=== PATIENT | male | born 1945 | race American Indian/Alaskan Native ===

== ENCOUNTER 2018-09-11 03:23 | Inpatient (IN) | payer MEDICARE ==
[2018-09-11] MEDS ORDERED: ASPIRIN PO ONE (03:35)
--- NOTE | 2018-09-11 03:47 | Emergency Department Report ---
ED General Adult HPI - General Chief complaint: Chest Pain Stated complaint: CHEST PAIN/DIZZINESS Time Seen by Provider: 09/11/18 03:45 Source: patient, RN notes reviewed, old records reviewed Mode of arrival: Ambulatory Limitations: No Limitations - History of Present Illness Initial comments: Primary care Dr.: [facility] Cardiology: Dr. Gamboa Past medical history: Ischemic cardiomyopathy, ejection fraction 35-40%, proximal LAD stent on aspirin therapy This is a 72-year-old gentleman who is not known to this provider previously, who presents to the ER with a complaint of central chest pain, that started last night, is now resolved, and "feels like my last heart attack." The patient denies vomiting, diaphoresis, shortness of breath. He denies leg pain, leg swelling, DVT, pulmonary embolus risk factors. He reports that briefly, when getting up, he felt dizzy, this has since resolved. He denies headache, neck pain, visual disturbance, extremity weakness, extremity numbness, flulike symptoms, cough, urinary symptoms. -: Gradual Location: chest Radiation: non-radiation Quality: aching Consistency: intermittent Improves with: none Worsens with: none Associated Symptoms: chest pain, loss of appetite, malaise, weakness. denies: confusion, cough, diaphoresis, fever/chills, headaches, nausea/vomiting, rash, seizure, shortness of breath, syncope - Related Data Home Medications Medication Instructions Recorded Confirmed Last Taken Carvedilol [Coreg] 12.5 mg PO BID 08/01/16 09/11/18 08/01/16 06:30 Cholecalciferol (Vitamin D3) 1,000 unit PO QDAY 08/01/16 09/11/18 08/01/16 06:30 [Vitamin D3] Cyanocobalamin (Vitamin B-12) 1,000 mcg PO QDAY 08/01/16 09/11/18 08/01/16 06:30 Lisinopril [Zestril TAB] 0.5 tab PO QDAY 08/01/16 09/11/18 08/01/16 06:30 Vitamin A 8,000 unit PO QDAY 08/01/16 09/11/18 08/01/16 06:30 Aspirin [Aspirin EC] 325 mg PO DAILY 09/11/18 09/11/18 Unknown Multivitamin with Iron 1 tab PO DAILY 09/11/18 09/11/18 Unknown [Multivitamins with Iron] Allergies Allergy/AdvReac Type Severity Reaction Status Date / Time No Known Allergies Allergy Verified 08/01/16 08:10 ED Review of Systems ROS: Stated complaint: CHEST PAIN/DIZZINESS Other details as noted in HPI Constitutional: malaise. denies: fever Eyes: denies: eye discharge ENT: denies: epistaxis, congestion Respiratory: denies: wheezing Cardiovascular: chest pain Gastrointestinal: denies: abdominal pain, nausea, vomiting Genitourinary: denies: dysuria Musculoskeletal: denies: arthralgia, myalgia Skin: denies: lesions Neurological: weakness Psychiatric: denies: anxiety ED Past Medical Hx - Past Medical History Previous Medical History?: Yes Hx Hypertension: Yes (2007) Hx Heart Attack/AMI: Yes (2007) Hx Arthritis: Yes (knees) - Surgical History Past Surgical History?: Yes Hx Coronary Stent: Yes (x2) Additional Surgical History: tonsil - Social History Smoking Status: Never Smoker Substance Use Type: Alcohol - Medications Home Medications: Home Medications Medication Instructions Recorded Confirmed Last Taken Type Carvedilol [Coreg] 12.5 mg PO BID 08/01/16 09/11/18 08/01/16 06:30 History Cholecalciferol (Vitamin D3) 1,000 unit PO QDAY 08/01/16 09/11/18 08/01/16 06:30 History [Vitamin D3] Cyanocobalamin (Vitamin B-12) 1,000 mcg PO QDAY 08/01/16 09/11/18 08/01/16 06:30 History Lisinopril [Zestril TAB] 0.5 tab PO QDAY 08/01/16 09/11/18 08/01/16 06:30 His tory Vitamin A 8,000 unit PO QDAY 08/01/16 09/11/18 08/01/16 06:30 History Aspirin [Aspirin EC] 325 mg PO DAILY 09/11/18 09/11/18 Unknown History Multivitamin with Iron 1 tab PO DAILY 09/11/18 09/11/18 Unknown History [Multivitamins with Iron] ED Physical Exam - General Limitations: No Limitations General appearance: alert, in no apparent distress - Head Head exam: Present: atraumatic, normocephalic - Eye Eye exam: Present: normal appearance, EOMI. Absent: nystagmus - ENT ENT exam: Present: normal exam, normal orophraynx, mucous membranes moist, normal external ear exam - Neck Neck exam: Present: normal inspection, full ROM. Absent: tenderness, meningismus - Respiratory Respiratory exam: Present: normal lung sounds bilaterally. Absent: respiratory distress - Cardiovascular Cardiovascular Exam: Present: regular rate, normal rhythm, normal heart sounds. Absent: bradycardia, tachycardia, irregular rhythm, systolic murmur, diastolic murmur, rubs, gallop - GI/Abdominal GI/Abdominal exam: Present: soft. Absent: distended, tenderness, guarding, rebound, rigid, pulsatile mass - Rectal Rectal exam: Present: deferred - Extremities Exam Extremities exam: Present: normal inspection, full ROM, other (there is no palpable cord. There is a negative Homans sign.). Absent: pedal edema, joint swelling, calf tenderness - Back Exam Back exam: Present: normal inspection, full ROM. Absent: tenderness, CVA tenderness (R), paraspinal tenderness, vertebral tenderness - Neurological Exam Neurological exam: Present: alert, oriented X3, other (Extraocular movements intact. Tongue midline. No facial droop. Facial sensation intact to light touch in the V1, V2, V3 distribution bilaterally. 5 and 5 strength in 4 extremities.. Sensation is intact to light touch in 4 extremities.). Absent: motor sensory deficit - Psychiatric Psychiatric exam: Present: normal affect, normal mood - Skin Skin exam: Present: warm, dry, intact, normal color. Absent: rash ED Course Vital Signs 09/11/18 09/11/18 09/11/18 03:30 04:02 05:01 Temperature 99.1 F 99.2 F Pulse Rate 89 77 Respiratory 16 15 15 Rate Blood Pressure 126/69 116/63 Blood Pressure 123/66 [Left] O2 Sat by Pulse 98 100 Oximetry ED Medical Decision Making - Lab Data Result diagrams: 09/11/18 03:52 09/11/18 03:52 Vital Signs 09/11/18 09/11/18 09/11/18 03:30 04:02 05:01 Temperature 99.1 F 99.2 F Pulse Rate 89 77 Respiratory 16 15 15 Rate Blood Pressure 126/69 116/63 Blood Pressure 123/66 [Left] O2 Sat by Pulse 98 100 Oximetry Lab Results 09/11/18 09/11/18 09/11/18 Range/Units 03:52 03:52 03:52 WBC 3.5 L (4.5-11.0) K/mm3 RBC 4.47 (3.65-5.03) M/mm3 Hgb 12.3 (11.8-15.2) gm/dl Hct 37.3 (35.5-45.6) % MCV 84 (84-94) fl MCH 28 (28-32) pg MCHC 33 (32-34) % RDW 15.5 H (13.2-15.2) % Plt Count 111 L (140-440) K/mm3 Lymph % (Auto) 24.3 (13.4-35.0) % [place] % (Auto) 9.6 H (0.0-7.3) % Eos % (Auto) 1.5 (0.0-4.3) % Baso % (Auto) 1.1 (0.0-1.8) % Lymph # 0.9 L (1.2-5.4) K/mm3 [place] # 0.3 (0.0-0.8) K/mm3 Eos # 0.1 (0.0-0.4) K/mm3 Baso # 0.0 (0.0-0.1) K/mm3 Seg Neutrophils % 63.5 (40.0-70.0) % Seg Neutrophils # 2.3 (1.8-7.7) K/mm3 PT 13.3 (12.2-14.9) Sec. INR 0.97 (0.87-1.13) APTT 27.5 (24.2-36.6) Sec. Sodium 132 L (137-145) mmol/L Potassium 4.9 (3.6-5.0) mmol/L Chloride 96.3 L (98-107) mmol/L Carbon Dioxide 19 L (22-30) mmol/L Anion Gap 22 mmol/L BUN 14 (9-20) mg/dL Creatinine 1.5 (0.8-1.5) mg/dL Estimated GFR 56 ml/min BUN/Creatinine Ratio 9 % Glucose 138 H (75-100) mg/dL Calcium 8.7 (8.4-10.2) mg/dL Magnesium (1.7-2.3) mg/dL Total Creatine Kinase (55-170) units/L Troponin T < 0.010 (0.00-0.029) ng/mL TSH (0.270-4.200) mlU/mL 09/11/18 09/11/18 Range/Units 03:52 03:52 WBC (4.5-11.0) K/mm3 RBC (3.65-5.03) M/mm3 Hgb (11.8-15.2) gm/dl Hct (35.5-45.6) % MCV (84-94) fl MCH (28-32) pg MCHC (32-34) % RDW (13.2-15.2) % Plt Count (140-440) K/mm3 Lymph % (Auto) (13.4-35.0) % [place] % (Auto) (0.0-7.3) % Eos % (Auto) (0.0-4.3) % Baso % (Auto) (0.0-1.8) % Lymph # (1.2-5.4) K/mm3 [place] # (0.0-0.8) K/mm3 Eos # (0.0-0.4) K/mm3 Baso # (0.0-0.1) K/mm3 Seg Neutrophils % (40.0-70.0) % Seg Neutrophils # (1.8-7.7) K/mm3 PT (12.2-14.9) Sec. INR (0.87-1.13) APTT (24.2-36.6) Sec. Sodium (137-145) mmol/L Potassium (3.6-5.0) mmol/L Chloride (98-107) mmol/L Carbon Dioxide (22-30) mmol/L Anion Gap mmol/L BUN (9-20) mg/dL Creatinine (0.8-1.5) mg/dL Estimated GFR ml/min BUN/Creatinine Ratio % Glucose (75-100) mg/dL Calcium (8.4-10.2) mg/dL Magnesium 2.00 (1.7-2.3) mg/dL Total Creatine Kinase 309 H (55-170) units/L Troponin T (0.00-0.029) ng/mL TSH 1.650 (0.270-4.200) mlU/mL - EKG Data 09/11/18 05:19 Sinus, 83 bpm, normal axis, QTC prolonged, poor R WaVE Progression, left ventricular hypertrophy, abnormal EKG, not consistent with ST elevation myocardial infarction, compared to prior EKG from 2016, specific changes have taken place - Radiology Data Radiology results: report reviewed, image reviewed Noncontrast CT scan of the brain is negative for acute disease. X-ray of the chest is negative for acute disease. - Medical Decision Making Differential diagnosis, including not limited to: Acute coronary syndrome, GERD, gastritis, hiatal hernia, pneumonia, pneumothorax, TIA Assessment and plan: 72-year-old gentleman, no reported pulmonary embolus or DVT risk factors, not tachycardic, not hypoxic, with resolved transient dizziness that began after he got from standing, lasted for a few seconds, currently has a Aquil[place] Coma Scale of 15, with an NIH score of 0, with chest pain, abnormal EKG, negative troponin. He is treated for his pain, screening laboratory studies unremarkable, he will be admitted to the medical service for cardiac risk stratification, Dr. Barnes, the hospital physician, has accepted the patient to the medical service. Critical care attestation.: If time is entered above; I have spent that time in minutes in the direct care of this critically ill patient, excluding procedure time. ED Disposition Clinical Impression: Chest pain, History of coronary artery disease Disposition: OP ADMIT IP TO THIS HOSP Is pt being admited?: Yes Does the pt Need Aspirin: Yes Condition: Good Instructions: Chest Pain (ED)
[2018-09-11 04:08] LABS: Basophils % (Auto) 1.1 % (0.0-1.8); Eosinophils # (Auto) 0.1 K/mm3 (0.0-0.4); Eosinophils % (Auto) 1.5 % (0.0-4.3); Hematocrit 37.3 % (35.5-45.6); Hemoglobin 12.3 gm/dl (11.8-15.2); Lymphocytes # (Auto) 0.9 K/mm3 (1.2-5.4); Lymphocytes % (Auto) 24.3 % (13.4-35.0); Mean Corpuscular HGB Conc 33 % (32-34); Mean Corpuscular Volume 84 fl (84-94); Monocytes # (Auto) 0.3 K/mm3 (0.0-0.8); Monocytes % (Auto) 9.6 % (0.0-7.3); Platelet Count 111 K/mm3 (140-440); Red Blood Count 4.47 M/mm3 (3.65-5.03); Red Cell Distribution Width 15.5 % (13.2-15.2)
[2018-09-11 04:19] LABS: INR 0.97 (0.87-1.13); Partial Thromboplastin Time 27.5 Sec. (24.2-36.6)
--- NOTE | 2018-09-11 04:24 | Cat Scan Report ---
FINAL REPORT EXAM: CT HEAD/BRAIN WO CON HISTORY: dizzy TECHNIQUE: CT imaging is acquired through the brain without contrast. Transaxial reformations are provided. PRIORS: None. FINDINGS: Ventricles and CSF spaces are proportionately enlarged, consistent with parenchymal atrophy. Scattere d deep and subcortical white matter hypodense foci are confluent in some areas and are compatible wit h microvascular angiopathy. No acute intracranial hemorrhage or mass effect. No skull fracture. No significant abnormality within the imaged paranasal sinuses or mastoid air cell s. IMPRESSION: No acute intracranial abnormality. There are chronic sequela of atrophy and microvascular angiopathy.
[2018-09-11 04:26] LABS: BUN/Creatinine Ratio 9; Blood Urea Nitrogen 14 mg/dL (9-20); Calcium 8.7 mg/dL (8.4-10.2); Hemolysis Index 11
--- NOTE | 2018-09-11 04:35 | XRay Report ---
FINAL REPORT EXAM: XR CHEST ROUTINE 2V HISTORY: cp dysnea TECHNIQUE: PA and lateral chest radiographs PRIORS: None. FINDINGS: No mediastinal shift. Cardiac silhouette is not enlarged. No pneumothorax, effusion, or focal pulmon aria opacity. No acute skeletal finding. IMPRESSION: No focal pulmonary opacity.
[2018-09-11] MEDS ORDERED: ZOFRAN IV PRN ×2 (05:11→05:32)
[2018-09-11] MEDS ORDERED: TYLENOL PO PRN ×2 (05:11→05:32)
[2018-09-11] MEDS ORDERED: SODIUM CHLORIDE FLUSH SYRINGE 10 ML IV PRN ×2 (05:11→05:21)
[2018-09-11] MEDS ORDERED: MORPHINE IV PRN ×2 (05:21→06:40)
[2018-09-11] MEDS ORDERED: NITROSTAT SL PRN (05:21)
[2018-09-11 05:54] LABS: Basophils % (Auto) 0.9 % (0.0-1.8); Eosinophils % (Auto) 1.3 % (0.0-4.3); Hematocrit 34.7 % (35.5-45.6); Hemoglobin 11.5 gm/dl (11.8-15.2); Lymphocytes # (Auto) 0.9 K/mm3 (1.2-5.4); Lymphocytes % (Auto) 24.1 % (13.4-35.0); Mean Corpuscular HGB Conc 33 % (32-34); Mean Corpuscular Volume 83 fl (84-94); Monocytes # (Auto) 0.4 K/mm3 (0.0-0.8); Platelet Count 104 K/mm3 (140-440); Red Blood Count 4.21 M/mm3 (3.65-5.03); Red Cell Distribution Width 15.2 % (13.2-15.2)
--- NOTE | 2018-09-11 05:55 | History and Physical Report ---
<TAHIR LEAL - Last Filed: 09/11/18 06:27> History of Present Illness Date of examination: 09/11/18 Date of admission: 09/11/18 Chief complaint: chest pain History of present illness: Pt is a 72 y/o BM with PMHx of CAD s/p stent hyperlipidemia, HTN who presents to the ER with c/o chest pain. Pt states that he woke up this morning around 2 am, and the chest pain started a few mins after he woke up, pt reports a left substernal chest pain, denies any radiation, denies SOB or diaphoresis, pt states that the pain is similar to prior chest pain when he had a stent placement. He reports recent cough, denies any acute illness, denies any palpitation, denies any recent travelling or ill-contact. Pt record showed a recent heart cath due to a positive stress test, an EKG done in the ER showed no STEMI criteria, his cardiology is consulted, he is admitted for further evaluation of the chest pain. Past History Past Medical History: arthritis, CAD, hypertension, hyperlipidemia Past Surgical History: No surgical history Social history: no significant social history Family history: no significant family history Medications and Allergies Allergies Allergy/AdvReac Type Severity Reaction Status Date / Time No Known Allergies Allergy Verified 08/01/16 08:10 Home Medications Medication Instructions Recorded Confirmed Last Taken Type Carvedilol [Coreg] 12.5 mg PO BID 08/01/16 09/11/18 08/01/16 06:30 History Cholecalciferol (Vitamin D3) 1,000 unit PO QDAY 08/01/16 09/11/18 08/01/16 06:30 History [Vitamin D3] Cyanocobalamin (Vitamin B-12) 1,000 mcg PO QDAY 08/01/16 09/11/18 08/01/16 06:30 History Lisinopril [Zestril TAB] 0.5 tab PO QDAY 08/01/16 09/11/18 08/01/16 06:30 History Vitamin A 8,000 unit PO QDAY 08/01/16 09/11/18 08/01/16 06:30 History Aspirin [Aspirin EC] 325 mg PO DAILY 09/11/18 09/11/18 Unknown History Multivitamin with Iron 1 tab PO DAILY 09/11/18 09/11/18 Unknown History [Multivitamins with Iron] Active Meds: Active Medications Acetaminophen (Tylenol) 650 mg PO Q4H PRN PRN Reason: Pain MILD(1-3)/Fever >100.5/LIM Aspirin (Ecotrin) 325 mg PO QDAY MERA Morphine Sulfate (Morphine) 2 mg IV Q5MIN PRN PRN Reason: Chest Pain unrelieved by NTG Nitroglycerin (Nitrostat) 0.4 mg SL Q5M PRN PRN Reason: Chest Pain Ondansetron HCl (Zofran) 4 mg IV Q8H PRN PRN Reason: Nausea And Vomiting Sodium Chloride (Sodium Chloride Flush Syringe 10 Ml) 10 ml IV BID MERA Sodium Chloride (Sodium Chloride Flush Syringe 10 Ml) 10 ml IV PRN PRN PRN Reason: LINE FLUSH Review of Systems Cardiovascular: chest pain Respiratory: cough Exam - Constitutional Vitals: Temp Pulse Resp BP Pulse Ox 99.2 F 77 15 116/63 100 09/11/18 04:02 09/11/18 05:01 09/11/18 05:01 09/11/18 05:01 09/11/18 04:02 General appearance: Present: no acute distress - EENT ENT: hearing intact - Neck Neck: Present: normal ROM - Respiratory Respiratory effort: normal Respiratory: bilateral: CTA - Cardiovascular Rhythm: regular - Extremities Extremities: no ischemia, Full ROM Peripheral Pulses: within normal limits - Abdominal General gastrointestinal: Present: non-tender Male genitourinary: Present: normal - Rectal Rectal Exam: deferred - Integumentary Integumentary: Present: warm, dry - Musculoskeletal Musculoskeletal: strength equal bilaterally - Psychiatric Psychiatric: cooperative - Neurologic Neurologic: moves all extremities Results - Labs CBC & Chem 7: 09/11/18 05:43 09/11/18 05:43 Labs: Laboratory Last Values WBC 3.5 K/mm3 (4.5-11.0) L 09/11/18 03:52 RBC 4.47 M/mm3 (3.65-5.03) 09/11/18 03:52 Hgb 12.3 gm/dl (11.8-15.2) 09/11/18 03:52 Hct 37.3 % (35.5-45.6) 09/11/18 03:52 MCV 84 fl (84-94) 09/11/18 03:52 MCH 28 pg (28-32) 09/11/18 03:52 MCHC 33 % (32-34) 09/11/18 03:52 RDW 15.5 % (13.2-15.2) H 09/11/18 03:52 Plt Count 111 K/mm3 (140-440) L 09/11/18 03:52 Lymph % (Auto) 24.3 % (13.4-35.0) 09/11/18 03:52 [place] % (Auto) 9.6 % (0.0-7.3) H 09/11/18 03:52 Eos % (Auto) 1.5 % (0.0-4.3) 09/11/18 03:52 Baso % (Auto) 1.1 % (0.0-1.8) 09/11/18 03:52 Lymph # 0.9 K/mm3 (1.2-5.4) L 09/11/18 03:52 [place] # 0.3 K/mm3 (0.0-0.8) 09/11/18 03:52 Eos # 0.1 K/mm3 (0.0-0.4) 09/11/18 03:52 Baso # 0.0 K/mm3 (0.0-0.1) 09/11/18 03:52 Seg Neutrophils % 63.5 % (40.0-70.0) 09/11/18 03:52 Seg Neutrophils # 2.3 K/mm3 (1.8-7.7) 09/11/18 03:52 PT 13.3 Sec. (12.2-14.9) 09/11/18 03:52 INR 0.97 (0.87-1.13) 09/11/18 03:52 APTT 27.5 Sec. (24.2-36.6) 09/11/18 03:52 Sodium 132 mmol/L (137-145) L 09/11/18 03:52 Potassium 4.9 mmol/L (3.6-5.0) 09/11/18 03:52 Chloride 96.3 mmol/L (98-107) L 09/11/18 03:52 Carbon Dioxide 19 mmol/L (22-30) L 09/11/18 03:52 Anion Gap 22 mmol/L 09/11/18 03:52 BUN 14 mg/dL (9-20) 09/11/18 03:52 Creatinine 1.5 mg/dL (0.8-1.5) 09/11/18 03:52 Estimated GFR 56 ml/min 09/11/18 03:52 BUN/Creatinine Ratio 9 % 09/11/18 03:52 Glucose 138 mg/dL (75-100) H 09/11/18 03:52 Calcium 8.7 mg/dL (8.4-10.2) 09/11/18 03:52 Magnesium 2.00 mg/dL (1.7-2.3) 09/11/18 03:52 Total Creatine Kinase 309 units/L (55-170) H 09/11/18 03:52 Troponin T < 0.010 ng/mL (0.00-0.029) 09/11/18 03:52 TSH 1.650 mlU/mL (0.270-4.200) 09/11/18 03:52 Assessment and Plan Assessment and plan: 1. Unstable angina r/o ACS 2. H/o CAD s/p stent 3. Hypertension 4. Hyperlipidemia 5. Thrombocytopenia 6. Recent hear cath Plan: Admit to [facility] for unstable angina Consult cardiology for evaluation Continue CE Q6hr x2 more Nitro PRN for chest pain Repeat EKG in am Morphine PRN for chest pain Resume home meds Further plan per hospital course Plan was d/w pt and family in room, voiced understanding Pt's condition and plan of care of care discussed with Dr Barnes Advance Directives: Yes VTE prophylaxis?: Mechanical Plan of care discussed with patient/family: Yes <ANGELIKA BARNES E - Last Filed: 09/11/18 06:55> Medications and Allergies Active Meds: Active Medications Acetaminophen (Tylenol) 650 mg PO Q4H PRN PRN Reason: Pain MILD(1-3)/Fever >100.5/LIM Aspirin (Ecotrin) 325 mg PO DAILY [facility] Carvedilol (Coreg) 12.5 mg PO BID [facility] Cholecalciferol (Vitamin D3) 1,000 unit PO QDAY [facility] Cyanocobalamin (Vitamin B-12) 1,000 mcg PO QDAY [facility] Enoxaparin Sodium (Lovenox) 40 mg SUB-Q QDAY@1000 MERA Lisinopril (Zestril) 5 mg PO QDAY [facility]REA Morphine Sulfate (Morphine) 2 mg IV Q4H PRN PRN Reason: Chest Pain unrelieved by NTG Nitroglycerin (Nitrostat) 0.4 mg SL Q5M PRN PRN Reason: Chest Pain Ondansetron HCl (Zofran) 4 mg IV Q8H PRN PRN Reason: Nausea And Vomiting Sodium Chloride (Sodium Chloride Flush Syringe 10 Ml) 10 ml IV BID MERA Sodium Chloride (Sodium Chloride Flush Syringe 10 Ml) 10 ml IV PRN PRN PRN Reason: LINE FLUSH Exam - Constitutional Vitals: Temp Pulse Resp BP Pulse Ox 99.2 F 76 14 129/70 100 09/11/18 04:02 09/11/18 06:00 09/11/18 06:00 09/11/18 06:00 09/11/18 04:02 Results - Labs CBC & Chem 7: 09/11/18 05:43 09/11/18 05:43 Labs: Laboratory Last Values WBC 3.8 K/mm3 (4.5-11.0) L 09/11/18 05:43 RBC 4.21 M/mm3 (3.65-5.03) 09/11/18 05:43 Hgb 11.5 gm/dl (11.8-15.2) L 09/11/18 05:43 Hct 34.7 % (35.5-45.6) L 09/11/18 05:43 MCV 83 fl (84-94) L 09/11/18 05:43 MCH 27 pg (28-32) L 09/11/18 05:43 MCHC 33 % (32-34) 09/11/18 05:43 RDW 15.2 % (13.2-15.2) 09/11/18 05:43 Plt Count 104 K/mm3 (140-440) L 09/11/18 05:43 Lymph % (Auto) 24.1 % (13.4-35.0) 09/11/18 05:43 [place] % (Auto) 10.0 % (0.0-7.3) H 09/11/18 05:43 Eos % (Auto) 1.3 % (0.0-4.3) 09/11/18 05:43 Baso % (Auto) 0.9 % (0.0-1.8) 09/11/18 05:43 Lymph # 0.9 K/mm3 (1.2-5.4) L 09/11/18 05:43 [place] # 0.4 K/mm3 (0.0-0.8) 09/11/18 05:43 Eos # 0.0 K/mm3 (0.0-0.4) 09/11/18 05:43 Baso # 0.0 K/mm3 (0.0-0.1) 09/11/18 05:43 Seg Neutrophils % 63.7 % (40.0-70.0) 09/11/18 05:43 Seg Neutrophils # 2.5 K/mm3 (1.8-7.7) 09/11/18 05:43 PT 13.3 Sec. (12.2-14.9) 09/11/18 03:52 INR 0.97 (0.87-1.13) 09/11/18 03:52 APTT 27.5 Sec. (24.2-36.6) 09/11/18 03:52 Sodium 131 mmol/L (137-145) L 09/11/18 05:43 Potassium 4.5 mmol/L (3.6-5.0) 09/11/18 05:43 Chloride 97.0 mmol/L (98-107) L 09/11/18 05:43 Carbon Dioxide 19 mmol/L (22-30) L 09/11/18 05:43 Anion Gap 20 mmol/L 09/11/18 05:43 BUN 14 mg/dL (9-20) 09/11/18 05:43 Creatinine 1.4 mg/dL (0.8-1.5) 09/11/18 05:43 Estimated GFR > 60 ml/min 09/11/18 05:43 BUN/Creatinine Ratio 10 % 09/11/18 05:43 Glucose 119 mg/dL (75-100) H 09/11/18 05:43 Calcium 8.2 mg/dL (8.4-10.2) L 09/11/18 05:43 Magnesium 2.00 mg/dL (1.7-2.3) 09/11/18 03:52 Total Creatine Kinase 309 units/L (55-170) H 09/11/18 03:52 Troponin T < 0.010 ng/mL (0.00-0.029) 09/11/18 05:43 Triglycerides 112 mg/dL (2-149) 09/11/18 05:43 Cholesterol 132 mg/dL (50-199) 09/11/18 05:43 LDL Cholesterol Direct 63 mg/dL (50-130) 09/11/18 05:43 HDL Cholesterol 73 mg/dL (40-59) H 09/11/18 05:43 Cholesterol/HDL Ratio 1.80 % 09/11/18 05:43 TSH 1.650 mlU/mL (0.270-4.200) 09/11/18 03:52 Assessment and Plan Assessment and plan: 72 year old man with history of HT N, CAD comes to the ER with complaints of chest pain that started yesterday. The pain is in the epigastric area which he describes as sharp pain, intermittent every 2 seconds, no radiation, cannot Identify Exacerbating or Relieving Factors. Denies Nausea or Vomiting, Shortness of Breath, Diaphoresis or Palpitation. He Had a Stress Test in 2018 at the [facility]. Agree with plan as discussed above, cancel stress test since the patient just had one in 2018
[2018-09-11 06:09] LABS: BUN/Creatinine Ratio 10; Blood Urea Nitrogen 14 mg/dL (9-20); Calcium 8.2 mg/dL (8.4-10.2); Chol/HDL Ratio 1.8 %; Hemolysis Index 4
[2018-09-11 07:48] LABS: Bacteria,Urine 1+ /HPF (Negative); Bilirubin,Urine NEG (Negative); Blood,Urine NEG (Negative); Color,Urine Amber (Yellow); Hyaline Casts,Urine 15 /LPF; Mucus,Urine 1+ /HPF; Sperm,Urine FEW /HPF (NP)
--- NOTE | 2018-09-11 09:10 | Consultation ---
Addendum entered and electronically signed by RENATA DAVIES MD 09/11/18 12:37: MPI reveals large apical and anteroseptal wall defect with akinesis consistent with prior LAD infarct There is no evidence of ischemia. LVEF 41% No further cardiac work-up is needed Carotid US us recommended and can be performed as outpatient for bilateral carotid bruits Addendum entered and electronically signed by RENATA DAVIES MD 09/11/18 11:11: Atypical chest pain No ischemic ECG changes Negative troponin x 3 Normal CXR History of CAD s/p PCI to LAD with cath 2015 showing patent LAD stent Ischemic cardiomyopathy, EF 35-40% Proceed with echo and MPI Original Note: History of Present Illness Consult date: 09/11/18 Consult reason: chest pain History of present illness: This is a 72 year old male with a history of anterior myocardial infarction, ischemic cardiomyopathy and coronary artery disease who has been lost to outpatient cardiac follow up. A cardiac catheterization late 2015, showed a widely patent proximal LAD stent. Otherwise, no significant residual coronary artery disease demonstrated. Ejection fraction 35-40%. Patient was brought to this hospital with complaints of nonexertional chest pain. Patient denies unusual shortness of breath, palpitations and lower extremity edema. He has a negative chest xray and cycled troponins are negative thus far. A 12 lead ECG shows sinus rhythm, no acute ischemic changes. A cardiac consultation was requested for further evaluation. Past History Past Medical History: arthritis, CAD, heart failure, hypertension, hyperlipidemia Social history: no significant social history Medications and Allergies Allergies Allergy/AdvReac Type Severity Reaction Status Date / Time No Known Allergies Allergy Verified 08/01/16 08:10 Home Medications Medication Instructions Recorded Confirmed Last Taken Type Carvedilol [Coreg] 12.5 mg PO BID 08/01/16 09/11/18 08/01/16 06:30 History Cholecalciferol (Vitamin D3) 1,000 unit PO QDAY 08/01/16 09/11/18 08/01/16 06:30 History [Vitamin D3] Cyanocobalamin (Vitamin B-12) 1,000 mcg PO QDAY 08/01/16 09/11/18 08/01/16 06:30 History Lisinopril [Zestril TAB] 0.5 tab PO QDAY 08/01/16 09/11/18 08/01/16 06:30 History Vitamin A 8,000 unit PO QDAY 08/01/16 09/11/18 08/01/16 06:30 History Aspirin [Aspirin EC] 325 mg PO DAILY 09/11/18 09/11/18 Unknown History Multivitamin with Iron 1 tab PO DAILY 09/11/18 09/11/18 Unknown History [Multivitamins with Iron] Active Meds: Active Medications Acetaminophen (Tylenol) 650 mg PO Q4H PRN PRN Reason: Pain MILD(1-3)/Fever >100.5/LIM Aspirin (Ecotrin) 325 mg PO DAILY [facility] Carvedilol (Coreg) 12.5 mg PO BID [facility] Cholecalciferol (Vitamin D3) 1,000 unit PO QDAY [facility] Cyanocobalamin (Vitamin B-12) 1,000 mcg PO QDAY [facility] Enoxaparin Sodium (Lovenox) 40 mg SUB-Q QDAY@1000 [facility] Lisinopril (Zestril) 5 mg PO QDAY [facility] Morphine Sulfate (Morphine) 2 mg IV Q4H PRN PRN Reason: Chest Pain unrelieved by NTG Nitroglycerin (Nitrostat) 0.4 mg SL Q5M PRN PRN Reason: Chest Pain Ondansetron HCl (Zofran) 4 mg IV Q8H PRN PRN Reason: Nausea And Vomiting Sodium Chloride (Sodium Chloride Flush Syringe 10 Ml) 10 ml IV BID [facility] Sodium Chloride (Sodium Chloride Flush Syringe 10 Ml) 10 ml IV PRN PRN PRN Reason: LINE FLUSH Physical Examination Vital Signs Temp Pulse Resp BP Pulse Ox 99.1 F 89 16 126/69 98 09/11/18 03:30 09/11/18 03:30 09/11/18 03:30 09/11/18 03:30 09/11/18 03:30 General appearance: no acute distress HEENT: Positive: PERRL Cardiac: Positive: Reg Rate and Rhythm Lungs: Positive: Decreased Breath Sounds Neuro: Positive: Grossly Intact Extremities: Absent: edema Results 09/11/18 05:43 09/11/18 05:43 Coagulation 09/11/18 Range/Units 03:52 PT 13.3 (12.2-14.9) Sec. INR 0.97 (0.87-1.13) APTT 27.5 (24.2-36.6) Sec. Lipids 09/11/18 Range/Units 05:43 Triglycerides 112 (2-149) mg/dL Cholesterol 132 (50-199) mg/dL HDL Cholesterol 73 H (40-59) mg/dL Cholesterol/HDL Ratio 1.80 % CBC 09/11/18 09/11/18 Range/Units 03:52 05:43 WBC 3.5 L 3.8 L (4.5-11.0) K/mm3 RBC 4.47 4.21 (3.65-5.03) M/mm3 Hgb 12.3 11.5 L (11.8-15.2) gm/dl Hct 37.3 34.7 L (35.5-45.6) % Plt Count 111 L 104 L (140-440) K/mm3 Lymph # 0.9 L 0.9 L (1.2-5.4) K/mm3 [place] # 0.3 0.4 (0.0-0.8) K/mm3 Eos # 0.1 0.0 (0.0-0.4) K/mm3 Baso # 0.0 0.0 (0.0-0.1) K/mm3 Comprehensive Metabolic Panel 09/11/18 09/11/18 Range/Units 03:52 05:43 Sodium 132 L 131 L (137-145) mmol/L Potassium 4.9 4.5 (3.6-5.0) mmol/L Chloride 96.3 L 97.0 L (98-107) mmol/L Carbon Dioxide 19 L 19 L (22-30) mmol/L BUN 14 14 (9-20) mg/dL Creatinine 1.5 1.4 (0.8-1.5) mg/dL Glucose 138 H 119 H (75-100) mg/dL Calcium 8.7 8.2 L (8.4-10.2) mg/dL Assessment and Plan Chest pain Hx of CAD Hx of Ischemic cardiomyopathy Hypertension We will obtain an persantine thallium stress test for further cardiac evaluation.
[2018-09-11] MEDS ORDERED: ECOTRIN PO SCH (10:00)
[2018-09-11] MEDS ORDERED: NON-FORMULARY (Cholecalciferol (Vitamin D3) [Vitamin D3] 1,000 UNIT) PO SCH (10:00)
[2018-09-11] MEDS ORDERED: LOVENOX SUB-Q SCH ×2 (10:00)
[2018-09-11] MEDS ORDERED: ZESTRIL PO SCH (10:00)
[2018-09-11] MEDS ORDERED: VITAMIN D3 PO SCH (10:00)
[2018-09-11] MEDS ORDERED: VITAMIN B-12 PO SCH (10:00)
[2018-09-11] MEDS ORDERED: CYANOCOBALAMIN 1000 MCG PO SCH (10:00)
--- NOTE | 2018-09-11 10:37 | Event Note ---
Date: 09/11/18 This is a follow-up from an admission earlier this morning. Patient seen and examined. We will continue the plan as outlined in the H&P. Total visit time equals 25 minutes with greater than 50% spent with coordination of care and counseling.
[2018-09-11] MEDS ORDERED: LEXISCAN IV ONE ×2 (10:53→10:54)
[2018-09-11 14:07] LABS: Albumin 4.1 g/dL (3.9-5); Bilirubin,Direct 0.2 mg/dL (0-0.2)
[2018-09-11] MEDS: COREG PO SCH ×2 (18:02→21:28)
[2018-09-11] MEDS: SODIUM CHLORIDE FLUSH SYRINGE 10 ML IV SCH ×2 (18:03→21:30)
--- NOTE | 2018-09-11 19:54 | Treadmill Report ---
INDICATION: Chest pain. ORDERING PHYSICIAN: Sergio Hinojosa MD FINDINGS: There is evidence of a large fixed apical, mid and basal anteroseptal wall defect consistent with a prior infarction in the LAD distribution. Gated wall imaging also reveals akinesis of the apical and anteroseptal leonard. The left ventricular ejection fraction is measured at 41%. The left ventricular end-diastolic volume is 155 mL consistent with mildly dilated left ventricular cavity. There is no scintigraphic evidence of myocardial ischemia. IMPRESSION: 1. Large fixed apical and anteroseptal wall defect consistent with a prior infarction in LAD distribution. 2. Akinesis of the apical and anteroseptal wall with an ejection fraction measured at 41% and a mildly dilated left ventricular cavity. 3. No scintigraphic evidence of myocardial ischemia. JOB# [id number] DANY/SD
--- NOTE | 2018-09-12 07:15 | Vascular Lab Report ---
FINAL REPORT PROCEDURE: VL CAROTID DUPLEX BILAT TECHNIQUE: Duplex Doppler ultrasound of the common, internal and external carotid arteries and the v ertebral arteries was performed bilaterally. Gregory scale imaging, velocity spectral waveform analysis, and color flow Doppler were employed. CPT 58463 HISTORY: murmur, HTN COMPARISON: No prior studies are available for comparison. FINDINGS: Note: Measurement of carotid stenosis is based on flow velocity values that correlate with the [place] Symptomatic Carotid Endarterectomy Trial (NASCET) based stenosis criteria using the internal carotid artery diameter as the denominator for stenosis calculation. CPT 3100F RIGHT carotid artery: Velocities: ICA PSV: 100 cm/sec ICA End diastolic: 16 cm/sec CCA PSV: 102 cm/sec IC/CC ratio: 1.02 Plaque/color flow: Mild heterogeneous plaque without significant spectral broadening or abnormal colo r flow. RIGHT vertebral artery: Antegrade systolic and diastolic flow. LEFT carotid artery: Velocities: ICA PSV: 63.5 cm/sec ICA End diastolic: 20.2 cm/sec CCA PSV: 56.4 cm/sec IC/CC ratio: 0 .76 Plaque/color flow: There is calcified plaque at the carotid bulb. LEFT vertebral artery: Antegrade systolic and diastolic flow. IMPRESSION: 1. RIGHT carotid: No hemodynamically significant (less than 50 percent) internal carotid artery steno sis. 2. LEFT carotid: No hemodynamically significant (less than 50 percent) internal carotid artery stenos is. 3. Vertebral arteries: Bilaterally antegrade.
[2018-09-12 08:27] VITALS: BP 140/76
--- NOTE | 2018-09-12 08:58 | Discharge Summary ---
Providers - Providers Date of Admission: 09/11/18 05:11 Date of discharge: 09/12/18 Attending physician: MICHEL ALVAREZ 09/11/18 06:13 Consult to Cardiology [CONS] Routine Consulting Provider: BASIL DONOHUE Reason For Exam: chest pain Primary care physician: MIR BLAND Hospitalization Reason for admission: cp Condition: Good Hospital course: This is a 72 year old male with a history of anterior myocardial infarction, ischemic cardiomyopathy and coronary artery disease who presented to the [facility] with complaints of nonexertional chest pain. Patient denied unusual shortness of breath, palpitations and lower extremity edema. He had a negative chest xray and cycled troponins were also negative. A 12 lead ECG shows sinus rhythm, no acute ischemic changes. A cardiac consultation was requested for further evaluation. Cardiology recommended MPI which revealed a large apical and anteroseptal wall defect with akinesis c/w prior LAD infarct. There is no evidence of ischemia. LVEF 41%. Echo revealed moderately to severely decreased with EF 35%. Cards reports No further cardiac work-up is needed. Cardiology recommended carotid Dopplers for carotid bruits. Carotid Dopplers were found to be negative. Dedicated discharge time 32 minutes. Disposition: - TO HOME OR SELFCARE Time spent for discharge: 32 - Discharge Diagnoses (1) Chest pain Status: Acute (2) History of coronary artery disease Status: Acute (3) Status post cardiac catheterization Status: Acute Core Measure Documentation - Palliative Care Palliative Care/ Comfort Measures: Not Applicable - Core Measures Any of the following diagnoses?: none Exam - Constitutional Vitals: Temp Pulse Resp BP Pulse Ox 98.6 F 67 18 140/76 100 09/12/18 08:26 09/12/18 08:26 09/12/18 08:26 09/12/18 08:26 09/12/18 08:26 General appearance: Present: no acute distress, well-nourished - EENT Eyes: Present: PERRL ENT: hearing intact, clear oral mucosa - Neck Neck: Present: supple, normal ROM - Respiratory Respiratory effort: normal Respiratory: bilateral: CTA - Cardiovascular Heart Sounds: Present: S1 & S2. Absent: rub, click - Extremities Extremities: pulses symmetrical, No edema Peripheral Pulses: within normal limits - Abdominal General gastrointestinal: Present: soft, non-tender, non-distended, normal bowel sounds Male genitourinary: Present: normal - Integumentary Integumentary: Present: clear, warm, dry - Musculoskeletal Musculoskeletal: gait normal, strength equal bilaterally - Psychiatric Psychiatric: appropriate mood/affect, intact judgment & insight - Neurologic Neurologic: CNII-XII intact, moves all extremities Plan Activity: no restrictions Weight Bearing Status: Full Weight Bearing Diet: low fat, low cholesterol, low salt Additional Instructions: Outpatient carotuid dopplers to be set up by Dr. Donohue Follow up with: MIR BLAND MD [Primary Care Provider] - 3-5 Days BASIL DONOHUE MD [Staff Physician] - 7 Days Prescriptions: Aspirin [Aspirin EC] 325 mg PO DAILY #30 tablet. AtorvaSTATin [Lipitor] 40 mg PO QHS #30 tablet Carvedilol [Coreg] 12.5 mg PO BID #60 tablet Cyanocobalamin (Vitamin B-12) 1,000 mcg PO QDAY #30 Lisinopril [Zestril TAB] 5 mg PO QDAY #30 tablet Multivitamin with Iron [Multivitamins with Iron] 1 tab PO DAILY #30 tablet Vitamin A 8,000 unit PO QDAY #30 capsule
[2018-09-12] MEDS ORDERED: HALFPRIN EC PO SCH (10:00)
[2018-09-12] MEDS ORDERED: ECOTRIN PO SCH (10:00)
--- NOTE | 2018-09-12 11:18 | Progress Note ---
Addendum entered and electronically signed by BASIL DONOHUE MD 09/12/18 11:24: Echocardiogram showed an ischemic cardiomyopathy, ejection fraction 35%, with ak inesis of the mid to distal anterior wall and apex consistent with a prior LAD territory infarct. Medical therapy and risk factor modification is recommended. Medical therapy should include afterload agents, beta blockers, oral antiplatelet therapy and statin. Original Note: Assessment and Plan Atypical chest pain No ischemic ECG changes Negative troponin x 3 Normal CXR History of CAD s/p PCI to LAD with cath 2016 showing patent LAD stent Hx of Ischemic cardiomyopathy, EF 35% on echo this admission Hypertension Continue medical therapy for coronary artery disease and ischemic cardiomyopathy. Stable cardiac castañeda. [facility]. Subjective Date of service: 09/12/18 Interval history: Patient has no complaints. He denies chest pain. Objective Vital Signs Temp Pulse Pulse Resp Resp BP BP 09/12/18 08:26 98.6 F 67 18 140/76 09/12/18 04:19 98.6 F 75 16 136/71 09/11/18 23:21 98.7 F 78 12 117/55 09/11/18 21:28 93 H 141/71 09/11/18 20:42 18 09/11/18 20:35 74 18 09/11/18 19:06 75 09/11/18 19:00 98.2 F 93 H 16 141/71 09/11/18 11:30 92 H 140/86 09/11/18 11:29 101 H 151/80 09/11/18 11:28 104 H 128/76 09/11/18 11:27 104 H 137/68 09/11/18 11:26 91 H 144/69 09/11/18 11:20 67 133/72 Pulse Ox 09/12/18 08:26 100 09/12/18 04:19 98 09/11/18 23:21 98 09/11/18 21:28 09/11/18 20:42 09/11/18 20:35 98 09/11/18 19:06 09/11/18 19:00 97 09/11/18 11:30 09/11/18 11:29 09/11/18 11:28 09/11/18 11:27 09/11/18 11:26 09/11/18 11:20 - Physical Examination General: No Apparent Distress HEENT: Positive: PERRL Cardiac: Positive: Reg Rate and Rhythm Lungs: Positive: Decreased Breath Sounds Neuro: Positive: Grossly Intact Extremities: Absent: edema - Labs and Meds Cardiac Enzymes 09/11/18 Range/Units 05:43 AST 168 H (5-40) units/L Comprehensive Metabolic Panel 09/11/18 Range/Units 05:43 Direct Bilirubin 0.2 (0-0.2) mg/dL Indirect Bilirubin 0.3 mg/dL AST 168 H (5-40) units/L ALT 75 H (7-56) units/L Alkaline Phosphatase 92 (35-129) units/L Total Protein 6.2 L (6.3-8.2) g/dL Albumin 4.1 (3.9-5) g/dL
== END 2018-09-12 12:00 | disposition home or self-care (01) | DRG 313 ==
LOC: ED 03:23 → 4A 05:11
PROVIDERS: ADMIT Internal Medicine; ATTEND Hospitalist
DX: R07.89 Other chest pain (principal); I25.110 Atherosclerotic heart disease of native coronary artery with unstable angina pectoris; I10 Essential (primary) hypertension; D69.6 Thrombocytopenia, unspecified; I25.5 Ischemic cardiomyopathy; Z95.5 Presence of coronary angioplasty implant and graft; Z79.82 Long term (current) use of aspirin; Z79.899 Other long term (current) drug therapy; I25.2 Old myocardial infarction
CPT/HCPCS: 36415; 70450; 71046; 78452; 80048; 80061; 80076; 81001; 82550; 83735; 84443; 84484; 85025; 85610; 85730; 93005; 93010; 93017; 93306; 93880; 99285; G0378; A9270-GY; A9502; J1650; J2785